=== PATIENT | female | born 1950 | race Caucasian/White ===

== ENCOUNTER 2017-09-16 11:41 | Emergency (ER) | payer MEDICARE ==
--- NOTE | 2017-09-16 13:21 | RAD ---
RIGHT FOOT 3 VIEWS: Date: 09/16/17 HISTORY: Fall, right foot pain and swelling. FINDINGS/IMPRESSION: There is an acute fracture involving the base of the fifth metatarsal without significant displaceme nt. There is an old fracture of the lateral aspect of the base of the proximal phalanx of the great toe. POS: [facility]
== END 2017-09-16 14:40 | disposition home or self-care (01) ==
LOC: ERS 11:41
DX: S92.354A Nondisplaced fracture of fifth metatarsal bone, right foot, initial encounter for closed fracture (principal); E11.9 Type 2 diabetes mellitus without complications; I10 Essential (primary) hypertension; J45.909 Unspecified asthma, uncomplicated; M19.90 Unspecified osteoarthritis, unspecified site; M06.9 Rheumatoid arthritis, unspecified; E03.9 Hypothyroidism, unspecified; E78.5 Hyperlipidemia, unspecified; E66.9 Obesity, unspecified; W18.30XA Fall on same level, unspecified, initial encounter
CPT/HCPCS: 29515